=== PATIENT | female | born 1990 | race African-American/Black ===

== ENCOUNTER 2024-01-31 09:00 | Outpatient (RCR) | payer MEDICAID, SELFPAY | END 2024-05-30 23:59 | disposition home or self-care (01) | PROVIDERS: Visit Provider Family Medicine | DX: M54.41 Lumbago with sciatica, right side (principal); G89.29 Other chronic pain; Z51.89 Encounter for other specified aftercare | CPT/HCPCS: 97110; 97140; 97162 ==

== ENCOUNTER 2024-02-10 07:21 | Emergency (ER) | payer MEDICAID, SELFPAY ==
[2024-02-10 07:26] VITALS: BP 151/100; PULSE 85; RESP 16; TEMP 36.6; O2SAT 99; BMI 39.5
--- NOTE | 2024-02-10 07:43 | ED_ITS ---
HPI - General Adult General Chief complaint: Dental/Oral/Mouth Injury/Pain Stated complaint: broken tooth, right side jaw/face swollen painful Time Seen by Provider: 02/10/24 07:43 History of Present Illness HPI narrative: Broken tooth to bottom right for a few months, recently becoming more painful. Ibuprofen 800 last at 0300, icing. Dentist appt on Sunday. 33-year-old woman presenting to the emergency department with concern of dental pain on the right side. She has managed to obtain a dental appointment in 3 days. Increasingly painful after sustaining contused in the lower right jaw few months ago. She has been taking ibuprofen and icing. No fever. No drainage. Maybe seeing a little swelling. Does have diabetes. Related Data Home Medications ?Medication ?Instructions ?Recorded ?Confirmed insulin glargine 100 unit/mL (3 20 unit subcut QPM 10/03/23 10/29/23 mL) subcutaneous pen (Lantus Solostar U-100 Insulin) metformin 1,000 mg tablet 1,000 mg PO BID 10/03/23 10/29/23 amoxicillin 500 mg tablet 500 mg PO 3XD 10/29/23 10/29/23 Allergies Allergy/AdvReac Type Severity Reaction Status Date / Time No Known Drug Allergies Allergy Verified 02/10/24 07:26 Review of Systems Status of ROS: Reports: 6 or more systems reviewed and unremarkable except as noted in History and below [facility] Medical History History of gestational diabetes ?Z86.32 - Personal history of gestational diabetes (ICD-10) Surgical History History of tubal ligation ?Z98.51 - Tubal ligation status (ICD-10) History of 2 sections ?Z98.891 - History of uterine scar from previous surgery (ICD-10) Social History Smoking Status: Current every day smoker What tobacco products do you use: cigarettes Do you use any of these nicotine containing products: None Second hand tobacco smoke exposure: No How often do you have a drink containing alcohol: never AUDIT-C Alcohol total score: 0 Non-prescribed substance use: marijuana (any form) Exam Narrative: Exam Narrative: Pleasant. Does appear to be rather uncomfortable. Skin is warm and dry. There may be some mild swelling around the right lower jaw but. No cervical lymphadenopathy. Oropharynx with dental injury on the right lower mid dentition. Appears to be the area of pain. Exposed inner tooth. Const: Vital Signs, click to edit/add: Vital Signs - 24 hr 02/10/24 07:26 Temperature 98 F Pulse Rate [Pulse Oximeter] 85 Respiratory Rate 16 Blood Pressure [Ri ght Upper Arm] 151/100 H Pulse Oximetry 99 Oxygen Delivery Me thod Room Air Documenting provider has reviewed patient's vital signs: yes Course Vital Signs Vital signs: Initial Vital Signs Temperature 98 F 02/10/24 07:26 Temperature Source Temporal Artery Scan 02/10/24 07:26 Pulse Rate 85 02/10/24 07:26 Respiratory Rate 16 02/10/24 07:26 Blood Pressure 151/100 H 02/10/24 07:26 Blood Pressure Mean 117 H 02/10/24 07:26 Blood Pressure Position Sitting 02/10/24 07:26 Pulse Oximetry 99 02/10/24 07:26 Oxygen Delivery Method Room Air 02/10/24 07:26 Vital Signs Temperature 98 F 02/10/24 07:26 Pulse Rate 85 02/10/24 07:26 Respiratory Rate 16 02/10/24 07:26 Blood Pressure 151/100 H 02/10/24 07:26 Pulse Oximetry 99 02/10/24 07:26 Oxygen Delivery Method Room Air 02/10/24 07:26 Temperature 98 F 02/10/24 07:26 Pulse Rate 85 02/10/24 07:26 Respiratory Rate 16 02/10/24 07:26 Blood Pressure 151/100 H 02/10/24 07:26 Pulse Oximetry 99 02/10/24 07:26 Oxygen Delivery Method Room Air 02/10/24 07:26 Medical Decision Making MDM Narrative Medical decision making narrative: Quite uncomfortable. I think might be able to help with dental block. Did offer a dental block. Otherwise does have close follow-up with dentist. I am not sure there might be an infection here but would be a good idea in the setting of diabetes an upcoming dental appointment I think to offer antibiotics. See patient discharge plan for further discussion Medical Records Medical records reviewed: Yes I reviewed the patient's medical records Discharge Plan Discharge Clinical Impression: Pain, dental Condition: Improved Additional Instructions: If icing feels better, go ahead and continue to do so. You might consider placing [employer] putty or varnish on the tooth pending your dental appointment on Sunday. Be seen sooner for marked increase in swelling, uncontrolled pain, fever. Can take up to 800 mg of ibuprofen or up to 1000 mg of acetaminophen per dose. Alternative to the ibuprofen might be up to 500 mg naproxen 2 times daily. [place] and penicillin from [facility]. Keep in mind that each tablet of [place] contains 325 mg of acetaminophen. Can take 2 tabs of the penicillin for your 1st dose. Prescriptions: No Action metformin 1,000 mg tablet 1,000 mg PO BID insulin glargine [Lantus Solostar U-100 Insulin] 100 unit/mL (3 mL) insulin pen 20 unit subcut QPM amoxicillin 500 mg tablet 500 mg PO 3XD Follow Up/Referrals: Provider,Not a Local [Staff Physician] -
== END 2024-02-10 08:28 | disposition home or self-care (01) ==
PROVIDERS: Emergency Provider Family Medicine; PCP Family Medicine
DX: K08.89 Other specified disorders of teeth and supporting structures (principal)
CPT/HCPCS: 99282; 99283; 99284